=== PATIENT | male | born 1955 | race Hispanic/Latino ===

== ENCOUNTER 2019-01-01 09:06 | Day surgery (SDC) | payer MEDICARE ==
[2018-12-22 16:21] VITALS: BMI 27.0
[2019-01-01 09:45] LABS: BASO # 0.03 K/mm3 (0.0-2.0); BASO % 0.6 % (0.0-3.0); HEMOGLOBIN 13.4 g/dL (14.0-18.0); LYMPH # 0.9 (1.2-3.4); MEAN CELL VOLUME 91.4 fl (80.0-105.0); MEAN CORPUSCULAR HEMOGLOBIN 28.9 pg (25.0-35.0); MEAN CORPUSCULAR HGB CONC 31.7 g/dl (31.0-37.0); MEAN PLATELET VOLUME 10.4 fl (7.0-11.0); MONO # 0.3 (0.1-0.6); MONO % 5.2 % (1.0-6.0); RBC 4.63 10^6/uL (3.5-6.1); RED CELL DISTRIBUTION WIDTH 14.8 % (11.5-14.5); WHITE BLOOD COUNT 5.2 10^3/uL (4.5-11.0)
[2019-01-01 09:56] LABS: INR 1.38; PROTHROMBIN TIME 15.6 SECONDS (9.4-12.5)
[2019-01-01 09:58] LABS: CALCIUM 9.4 mg/dL (8.4-10.5)
[2019-01-01] MEDS ORDERED: Heparin 2,000 ML IV ONE (10:10)
[2019-01-01] MEDS ORDERED: Nitroglycerin 50mg in D5W 50 MG/250 ML BOTTLE IV ONE (10:10)
[2019-01-01] MEDS ORDERED: Lidocaine PF 2% (5 ml) Inj (For Cardiac Arrhy) ONE (10:10)
[2019-01-01] MEDS ORDERED: Iodixanol 320 MG/ML 200 ML BOTTLE IV ONE (10:10)
[2019-01-01] MEDS ORDERED: Iodixanol 320 MG/ML 100 ML BOTTLE IV ONE ×2 (10:10→11:19)
[2019-01-01] MEDS ORDERED: Midazolam 2 MG/2 ML VIAL ONE ×3 (10:13→10:56)
[2019-01-01] MEDS ORDERED: Oxycodone/Acetaminophen 5/325 mg Tab PO PRN (12:02)
[2019-01-01] MEDS: Sodium Chloride 0.45% 1,000 ML IV SCH ×2 (15:33→21:48)
--- NOTE | 2019-01-01 19:29 | VASCULAR ---
Date of service: 01/01/2019 PROCEDURE: 1. Left iliac venogram with 2 punctures. 2. IVC venogram 3. Left iliac vein angioplasty and stent placement 4. Left common femoral vein angioplasty and stent placement HISTORY: Previous DVT with extensive post phlebitic syndrome. Persistent symptoms and leg swelling. 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 TECHNIQUE: The relative risks and indications of the procedure were explained to the patient and consent obtained. The patient was hydrated prior to the procedure and the appropriate labs drawn. The patient was placed supine on the arteriogram table and both groins prepped and draped usual sterile fashion. Conscious sedation monitoring were provided throughout the procedure by a nurse Under ultrasound guidance, the proximal left greater saphenous vein was punctured with a micropuncture set. A 5 [place] sheath was placed. Through the sheath a left iliac venogram was performed. This revealed extensive post phlebitic changes in the left common femoral vein and left external iliac vein. 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 An angled glidewire and catheter were used to cross the chronic left common iliac vein occlusion. A 5 [place] flush catheter was placed in the proximal right common iliac vein. And IVC gram was performed. The left common iliac vein was dilated with 12 and 14 mm balloons. The left external iliac vein was dilated with 12 mm balloons. The left common femoral vein was dilated with a 10 mm balloon. A 16 mm x 90 mm wall stent was deployed across the left common iliac occlusion. This was dilated with a 14 mm balloon. Next the right common femoral vein was punctured under ultrasound guidance with a micropuncture set. A 6 [place] sheath was placed. The left common iliac vein stent was crossed from the right with a an angled catheter and glidewire. The catheter and guidewire were advanced into the left profunda femoral vein. A support wire was placed. A 10 mm by 60 mm Nitinol stent was placed in the left common femoral vein. A 12 mm x 60 mm Nitinol stent was placed in the distal left external iliac vein. The entire left iliac venous system left common femoral vein were dilated. Completion venograms were performed. This revealed an excellent vena graphic result with brisk flow. The sheaths were removed hemostasis obtained. The patient tolerated the procedure well FINDINGS: Extensive post lytic changes are seen left common femoral vein, left external iliac vein and left common iliac vein. Left common iliac vein is chronically occluded. The proximal left femoral vein is occluded. The left profunda femoral veins are patent. The visualized right common iliac vein and IVC are normal. IMPRESSION: 1.Extensive post phlebitic changes in the left iliac venous system and left common femoral vein. 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 2. Successful angioplasty and stent placement involving the left common and external iliac veins. 3. Successful angioplasty and stent placement in the left common femoral vein. 4. The patient should continue on warfarin for 12-24 months and continue to use compression therapy.
[2019-01-01] MEDS ORDERED: Non Formulary Medication (Warfarin [Coumadin] 4 MG) PO SCH (22:00)
[2019-01-02 01:15] VITALS: O2SAT 98
[2019-01-02 07:29] LABS: MEAN CELL VOLUME 89.2 fl (80.0-105.0); MEAN CORPUSCULAR HEMOGLOBIN 28.6 pg (25.0-35.0); MEAN CORPUSCULAR HGB CONC 32.1 g/dl (31.0-37.0); MEAN PLATELET VOLUME 10.8 fl (7.0-11.0); RBC 4.54 10^6/uL (3.5-6.1); RED CELL DISTRIBUTION WIDTH 14.9 % (11.5-14.5); WHITE BLOOD COUNT 7.1 10^3/uL (4.5-11.0)
[2019-01-02 13:32] VITALS: BP 146/83; RESP 20; TEMP 97.9
[2019-01-02 20:23] VITALS: PULSE 66
== END 2019-01-02 15:15 | disposition home or self-care (01) ==
LOC: SDS 09:06 → 2RSO 14:19 → SDS 01-02 15:15
PROVIDERS: ATTEND Radiology Vascular & Interventional Radiology
DX: I87.022 Postthrombotic syndrome with inflammation of left lower extremity (principal); I82.522 Chronic embolism and thrombosis of left iliac vein; I10 Essential (primary) hypertension; J45.909 Unspecified asthma, uncomplicated; E11.9 Type 2 diabetes mellitus without complications; Z86.59 Personal history of other mental and behavioral disorders; Z79.01 Long term (current) use of anticoagulants
CPT/HCPCS: 36011; 36012; 36415 ×2; 37238; 37239; 75822; 75825; 80048 ×2; 82948 ×2; 85025; 85027; 85610; 85730; 99152; 99153; C1725 ×3; C1760; C1769 ×3; C1876 ×3; C1887 ×3; C1894 ×2; J0360; J0690; J1644 ×2; J1940; J2250; J3010; J7030; Q9966; Q9967

== ENCOUNTER 2019-01-15 13:44 | Outpatient (CLI) | payer MEDICARE | END 2019-01-15 13:45 | disposition home or self-care (01) | LOC: RAD 13:45 ==